=== PATIENT | female | born 1935 | race Two or more races ===

== ENCOUNTER 2019-04-26 14:17 | Emergency (ER) | payer OTHER, MEDICAID ==
[~2019-04-26] VITALS: Ht 162.6 cm; Wt 50.0 kg
[2019-04-26] MEDS ORDERED: LIP40 PO (14:25)
[2019-04-26] MEDS ORDERED: AMLO10TA80 PO (14:25)
[2019-04-26] MEDS ORDERED: GLIP10TA10 PO (14:25)
[2019-04-26 15:59] LABS: CHLORIDE 107 mEq/L (98-107)
[2019-04-26 16:10] LABS: BASOPHILS % 0.5 % (0.0-2.0); EOSINOPHILS % 0.9 % (0.0-5.0); HEMOGLOBIN. 13.7 g/dL (12.0-16.0); LYMPHOCYTES % 20.9 % (20.0-50.0); MEAN CORPUSCULAR HEMOGLOBIN 29.7 pg (28.0-32.0); MEAN PLATELET VOLUME 9.5 fl (7.4-10.4); MONOCYTES % 5.4 % (2.0-8.0); NEUTROPHILS % 72.3 % (40.0-76.0); PLATELET 105 x1000/uL (130-400); RED BLOOD CELL COUNT 4.59 mill/uL (4.2-5.4); RED CELL DISTRIBUTION WIDTH 13.6 % (11.6-14.6)
[2019-04-26] MEDS ORDERED: ASPIRIN 81MG TABLET PO ONE (18:15)
[2019-04-26] MEDS ORDERED: SODIUM CHLORIDE 0.9% 1,000 ML IV ONE (18:15)
[2019-04-26 19:58] VITALS: BP 172/103
== END 2019-04-26 21:03 | disposition short-term general hospital (02) ==
LOC: ER 14:17 → CANBEDREQ 22:10
DX: I63.9 Cerebral infarction, unspecified (principal); E11.9 Type 2 diabetes mellitus without complications; I10 Essential (primary) hypertension; N28.9 Disorder of kidney and ureter, unspecified; I48.20 Chronic atrial fibrillation, unspecified; I69.354 Hemiplegia and hemiparesis following cerebral infarction affecting left non-dominant side; Z79.01 Long term (current) use of anticoagulants
CPT/HCPCS: 36415; 70450; 71045; 80053; 82962; 83880; 84484; 85025; 87040; 93005; 96360; 99285; J7030

== ENCOUNTER 2020-02-08 08:07 | Emergency (ER) | payer OTHER, MEDICAID ==
[~2020-02-08] VITALS: Ht 167.6 cm; Wt 54.0 kg
[~2020-02-08 08:07] MED LIST: AMLO10TA80 PO; GLIP10TA10 PO; LIP40 PO
[2020-02-08 09:19] LABS: BASOPHILS % 0.4 % (0.0-2.0); EOSINOPHILS % 0.8 % (0.0-5.0); HEMATOCRIT. 44.4 % (36.0-48.0); LYMPHOCYTES % 13.8 % (20.0-50.0); MEAN CORPUSCULAR HEMOGLOBIN 29.5 pg (28.0-32.0); MEAN CORPUSCULAR VOLUME 87.4 fL (81.0-99.0); MEAN PLATELET VOLUME 9.7 fl (7.4-10.4); MONOCYTES % 3.3 % (2.0-8.0); NEUTROPHILS % 81.7 % (40.0-76.0); PLATELET 117 x1000/uL (130-400); RED BLOOD CELL COUNT 5.07 mill/uL (4.2-5.4); RED CELL DISTRIBUTION WIDTH 14.1 % (11.6-14.6)
[2020-02-08 09:28] LABS: INR 1.1
[2020-02-08 09:37] LABS: CHLORIDE 106 mEq/L (98-107)
[2020-02-08 09:42] LABS: ETHANOL BLOOD 12 mg/dL
[2020-02-08 09:45] LABS: LDL CHOLESTEROL 90 mg/dL (5-100)
[2020-02-08] MEDS ORDERED: DILTIAZEM HCL 5MG/ML 5ML VIAL IV NR (10:00)
[2020-02-08] MEDS ORDERED: IOHEXOL-350 100 ML BOTTLE ONE (10:06)
[2020-02-08] MEDS ORDERED: DILTIAZEM HCL 5MG/ML 5ML VIAL IV ONE (11:15)
[2020-02-08 11:25] VITALS: BP 170/108
== END 2020-02-08 11:30 | disposition short-term general hospital (02) ==
LOC: ER 08:07 → CANBEDREQ 15:46
DX: I63.9 Cerebral infarction, unspecified (principal); G93.41 Metabolic encephalopathy; I48.91 Unspecified atrial fibrillation; I10 Essential (primary) hypertension; E11.9 Type 2 diabetes mellitus without complications
CPT/HCPCS: 36415; 70450; 70496; 71045; 80053; 80320; 82962; 83721; 84484; 85025; 85610; 93005; 96374; 96376; 99285; J3490; Q9967; G0480